=== PATIENT | female | born 1960 | race African-American/Black ===

== ENCOUNTER → 2017-06-27 | Outpatient (CLI) | payer OTHER ==
--- NOTE | 2017-06-27 16:27 | RADIOLOGY REPORT (SQ) ---
EXAM DESCRIPTION: KUB/ABDOMEN (SINGLE VIEW) COMPLETED DATE/TIME: 06/27/2017 12:58 pm REASON FOR STUDY: CONSTIPATION (K59.01), BLOATING (R14.0) K59.01 SLOW TRANSIT CONSTIPATION R14.0 A BDOMINAL DISTENSION (GASEOUS) COMPARISON: None. NUMBER OF VIEWS: One view. TECHNIQUE: Supine radiographic image of the abdomen acquired. LIMITATIONS: None. FINDINGS: BOWEL GAS PATTERN: Large amount of fecal material in the proximal colon. CALCIFICATIONS: No suspicious calcifications. Multiple phleboliths in the pelvis. SOFT TISSUES: No gross mass or suggestion of organomegaly. HARDWARE: None in the abdomen. BONES: No acute fracture. No worrisome bone lesions. OTHER: No other significant finding. IMPRESSION: Large amount of fecal material in the proximal colon otherwise negative abdomen. TECHNICAL DOCUMENTATION: JOB ID: [id number] [employer]- All Rights Reserved
== END ==
LOC: RAD 12:26
PROVIDERS: ATTEND Internal Medicine Gastroenterology
DX: K59.01 Slow transit constipation (principal); R14.0 Abdominal distension (gaseous)
CPT/HCPCS: 74018

== ENCOUNTER → 2017-08-30 | Day surgery (SDC) | payer OTHER ==
[~2017-08-30] MED LIST: LIDOCAINE 2% JELLY 5 ML TUBE ONE
== END ==
LOC: END 13:29
PROVIDERS: ATTEND Internal Medicine Gastroenterology
PROC: 4A0B7BZ Measurement of Gastrointestinal Pressure, Via Natural or Artificial Opening (ICD-10-PCS; principal; 2017-08-30)
PROC: 4A0B78Z Measurement of Gastrointestinal Motility, Via Natural or Artificial Opening (ICD-10-PCS; 2017-08-30)
DX: K21.9 Gastro-esophageal reflux disease without esophagitis (principal); Z79.899 Other long term (current) drug therapy
CPT/HCPCS: 91010; 91035

== ENCOUNTER 2018-08-08 11:16 | Observation (INO) | payer OTHER ==
[2018-08-08] MEDS ORDERED: ASPIRIN 81 MG TABLET, CHEWABLE PO ONE (11:41)
[2018-08-08 12:06] LABS: ABSOLUTE EOSINOPHILS # (AUTO) 0.1 10^3/uL (0.0-0.6); ABSOLUTE LYMPHOCYTES (AUTO) 2.5 10^3/uL (0.5-4.7); ABSOLUTE MONOCYTES (AUTO) 0.3 10^3/uL (0.1-1.4); ABSOLUTE NEUT (AUTO) 2.2 10^3/uL (1.7-8.2); BASOPHILS % (AUTO) 0.9 % (0-2); EOSINOPHILS % (AUTO) 2.6 % (0-6); HEMATOCRIT 38.4 % (36.0-47.0); HEMOGLOBIN 12.5 g/dL (12.0-15.5); LYMPHOCYTES % (AUTO) 47.6 % (13-45); MEAN CORPUSCULAR HEMOGLOBIN 24.1 pg (27.0-33.4); MEAN CORPUSCULAR HGB CONC 32.5 g/dL (32.0-36.0); MEAN CORPUSCULAR VOLUME 74 fl (80-97); MONOCYTES % (AUTO) 6.4 % (3-13); PLATELET COUNT 340 10^3/uL (150-450); RED BLOOD COUNT 5.18 10^6/uL (3.72-5.28); RED CELL DISTRIBUTION WIDTH 15.6 % (11.5-14.0); SEGMENTED NEUTROPHILS % (AUTO) 42.5 % (42-78); TOTAL CELLS COUNTED % (AUTO) 100 %; WHITE BLOOD COUNT 5.2 10^3/uL (4.0-10.5)
[2018-08-08 12:07] LABS: ALANINE AMINOTRANSFERASE 22 U/L (9-52); ALKALINE PHOSPHATASE 52 U/L (38-126); ANION GAP 13 (5-19); ASPARTATE AMINO TRANSFERASE 20 U/L (14-36); BILIRUBIN,DIRECT 0.3 mg/dL (0.0-0.4); BILIRUBIN,TOTAL 0.3 mg/dL (0.2-1.3); BLOOD UREA NITROGEN 11 mg/dL (7-20); CALCIUM 10.3 mg/dL (8.4-10.2); CARBON DIOXIDE 23 mmol/L (22-30); CHLORIDE 106 mmol/L (98-107); CREATINE KINASE 88 U/L (30-135); GLUCOSE 99 mg/dL (75-110); POTASSIUM 3.8 mmol/L (3.6-5.0); SODIUM 141.7 mmol/L (137-145)
--- NOTE | 2018-08-08 12:08 | RADIOLOGY REPORT (SQ) ---
EXAM DESCRIPTION: CHEST SINGLE VIEW COMPLETED DATE/TIME: 08/08/2018 11:58 am REASON FOR STUDY: chest pain COMPARISON: 12/26/2012 EXAM PARAMETERS: NUMBER OF VIEWS: One view. TECHNIQUE: Single frontal radiographic view of the chest acquired. RADIATION DOSE: NA LIMITATIONS: None. FINDINGS: LUNGS AND PLEURA: No opacities, masses or pneumothorax. No pleural effusion. MEDIASTINUM AND HILAR STRUCTURES: No masses. Contour normal. HEART AND VASCULAR STRUCTURES: Heart normal in size. Normal vasculature. BONES: No acute findings. HARDWARE: None in the chest. OTHER: No other significant finding. IMPRESSION: 1. No significant interval changes since the prior examination dated 12/26/2012. No acu te findings. TECHNICAL DOCUMENTATION: JOB ID: [id number] [employer]- All Rights Reserved Reading location - IP/workstation name: [email or web address]
[2018-08-08 12:21] LABS: CREATINE KINASE MB < 0.22 ng/mL (<4.55); TROPONIN I < 0.012 ng/mL
--- NOTE | 2018-08-08 13:17 | ER Document Report ---
ED General - General Chief Complaint: Chest Pain Stated Complaint: BLOOD PRESSURE ISSUES Time Seen by Provider: 08/08/18 13:16 TRAVEL OUTSIDE OF THE [place] IN LAST 30 DAYS: No - HPI Notes: 58-year-old female presents the ED with complaints of having headaches, with nausea and blurred vision while she is experiencing fleeting chest pain, states that the symptoms come and go over the course of the last 4 days, patient has a history of hypertension and is taking norvasc 40mg and 80 mg of carvedilol daily. Patient states has been taking her blood pressures at home and they have been roughly around 170-180/90. States she experiences midsternal chest pain that radiates to her left chest wall she is brushing her teeth and then it goes away. Denies any radiation to jaw or down her arm. Patient does not take a baby aspirin daily has not been evaluated by a elevator conductor in well over 5 years, has not had a stress test since 2013. Denies fevers, chills,palpitations, shortness of breath, dyspnea, nausea, vomiting, diarrhea, abdominal pain, hematuria, speech changes, LH, dizziness, syncope, wheezing, ST, URI, neck pain, weakness, bowel or bladder dysfunction, saddle anesthesia, numbness or tingling in bilateral upper or lower extremities equally, muscle paralysis, weakness in bilateral upper or lower extremities equally or rash. - Related Data Allergies/Adverse Reactions: No Known Allergies Allergy (Verified 08/08/18 11:17) Past Medical History - General Information source: Patient - Social History Smoking Status: Never Smoker Frequency of alcohol use: None Drug Abuse: None Family History: Reviewed & Not Pertinent, DM - MOTHER, Malignancy - FATHER LUNG CANCER Patient has suicidal ideation: No Patient has homicidal ideation: No - Past Medical History Cardiac Medical History: Reports: Hx Hypertension Denies: Hx Hypercholesterolemia Neurological Medical History: Reports: Hx Migraine - FREQUENT Renal/ Medical History: Denies: Hx Peritoneal Dialysis GI Medical History: Reports: Hx Gastroesophageal Reflux Disease Psychiatric Medical History: Reports: Hx Anxiety Past Surgical History: Reports: Hx Abdominal Surgery - hernia repair, Hx Miguel an Section, Hx Hysterectomy - Immunizations Hx Diphtheria, Pertussis, Tetanus Vaccination: Yes Review of Systems - Review of Systems Constitutional: No symptoms reported EENT: No symptoms reported Cardiovascular: See HPI Respiratory: No symptoms reported Gastrointestinal: No symptoms reported Genitourinary: No symptoms reported Female Genitourinary: No symptoms reported Musculoskeletal: No symptoms reported Skin: No symptoms reported Hematologic/Lymphatic: No symptoms reported Neurological/Psychological: No symptoms reported Physical Exam - Vital signs Vitals: Resp 14 08/08/18 11:34 - Notes Notes: PHYSICAL EXAMINATION: GENERAL: Well-appearing, well-nourished and in no acute distress. HEAD: Atraumatic, normocephalic. EYES: Pupils equal round and reactive to light, extraocular movements intact, conjunctiva are normal. ENT: Nares patent, oropharynx clear without exudates. Moist mucous membranes. NECK: Normal range of motion, supple without lymphadenopathy LUNGS: Breath sounds clear to auscultation bilaterally and equal. No wheezes rales or rhonchi. HEART: Regular rate and rhythm without murmurs ABDOMEN: Soft, nontender, nondistended abdomen. No guarding, no rebound. No masses appreciated. Female : deferred Musculoskeletal: Normal range of motion, no pitting or edema. No cyanosis. NEUROLOGICAL: Cranial nerves grossly intact. Normal speech, normal gait. Normal sensory, motor exams PSYCH: Normal mood, normal affect. SKIN: Warm, Dry, normal turgor, no rashes or lesions noted. 22-like and then on the other half of a flight Course - Re-evaluation Re-evalutation: 08/08/18 13:58 58-year-old female with a history of hypertension afebrile, slightly hypertensive in the 150s over 90s in no distress presents for evaluation of chest pain that is fleeting, has been occurring over the course of the last 4 days which she is concurrently has had occipital headaches, some blurred vision, nausea that has occurred when she is having the chest pain. Patient has been taking her blood pressure medications as directed she did take it this morning. CBC negative for leukocytosis or anemia, CMP negative for hepatic or renal dysfunction, no electrolyte disturbances. Chest x-ray negative for any acute pulmonary issues, EKG negative for acute STEMI no ST segment changes. First set of troponin unremarkable. Patient given 325 baby aspirin for what sounds like patient to have unstable angina, does require inpatient stress test and echocardiogram since it has been well over 5 years since patient has been evaluated by the elevator conductor. Patient's heart score is moderate, 4 points which has a 12-6.8 for risk of adverse cardiac event. patient states that she did see a elevator conductor however she was switched from seeing primary care but [place]. [place] I feel this patient is reasonable to admit for observation for chest pain for further evaluation of her chest pain and hypertension. Hospitalist service, Dr. Dom Clement, hospitalist, consulted at 1448 will admit patient to medical service for cardiac observation for unstable angina. Patient has been verbalized understanding of this plan of care and agree with plan of care. 08/08/18 16:55 - Vital Signs Vital signs: Temp Pulse Resp BP Pulse Ox 98.8 F 22 H 132/98 H 100 08/08/18 16:25 08/08/18 15:01 08/08/18 15:01 08/08/18 15:01 - Laboratory Result Diagrams: 08/08/18 11:30 08/08/18 11:30 Laboratory results interpreted by me: 08/08/18 08/08/18 11:30 11:30 MCV 74 L MCH 24.1 L RDW 15.6 H Lymphocytes % 47.6 H Calcium 10.3 H Total Protein 9.0 H Discharge - Discharge Clinical Impression: Chest pain Qualifiers: Ischemic chest pain type: unstable angina pectoris Hypertension Qualifiers: Hypertension type: essential hypertension Qualified Code(s): I10 - Essential (primary) hypertension Condition: Stable Disposition: ADMITTED OBSERVATION Admitting Provider: Hospitalist - Dr. Dom Clement Unit Admitted: Telemetry
--- NOTE | 2018-08-08 13:32 | EKG REPORT ---
SEVERITY:- BORDERLINE ECG - SINUS RHYTHM LVH BY VOLTAGE : Confirmed by: Gordon Pappas MD 08-Aug-2018 13:32:14
--- NOTE | 2018-08-08 14:12 | ER Document Report ---
Doctor's Note Notes: 08/08/18 14:11 I personally and independently obtained patient history and examined the patient and have reviewed the APC's note, reviewed, discussed and agree with their assessment and plan. HISTORY OF PRESENT ILLNESS: Patient is a 58-year-old female that presents to the emergency department for chief complaint of chest pain. Pain is been intermittent. ROS: Constitutional: Negative for fever. Cardiovascular: chest pain. Respiratory: Negative for shortness of breath. Gastrointestinal: Negative for vomiting or abdominal pain Musculoskeletal: Negative for arm, leg or back pain Skin: Negative for rash. Neurological: Negative for weakness or numbness. Unless otherwise stated in this report the patient's positive and negative responses for review of systems for constitutional, eyes, ENT, cardiovascular, respiratory, gastrointestinal, neurological, genitourinary, musculoskeletal, and integumentary systems and related systems to the presenting problem are either as stated in the HPI or were not pertinent or were negative for the symptoms and/or complaints related to the presenting medical problem. PHYSICAL EXAMINATION: Vital signs reviewed, nursing noted reviewed. GENERAL: Well-appearing, well-nourished and in no acute distress. HEAD: Atraumatic, normocephalic. EYES: Eyes appear normal, conjunctiva are normal. ENT: nares patent, oropharynx clear without exudates. Moist mucous membranes. NECK: Normal range of motion, supple without lymphadenopathy LUNGS: Breath sounds clear to auscultation bilaterally and equal. No wheezes rales or rhonchi. HEART: Regular rate and rhythm without murmurs ABDOMEN: Soft, nontender, normoactive bowel sounds. No rebound, guarding, or rigidity. No masses appreciated. EXTREMITIES: Nontender, good range of motion, no pitting or edema. NEUROLOGICAL: No focal neurological deficits. Moves all extremities spontaneously Motor and sensory grossly intact on exam. PSYCH: Normal mood, normal affect. SKIN: Warm, Dry, normal turgor, no rashes or lesions noted on exposed MEDICAL DECISION MAKING: Patient currently resting comfortably and not having active chest pain. She will be admitted for further cardiac evaluation Please review detail APC documentation. *Note is created using voice recognition software and may contain spelling, syntax or grammatical errors.
[2018-08-08] MEDS ORDERED: NITROGLYCERIN 0.4 MG/TAB 25 TAB/BOTTLE SL PRN (14:27)
--- NOTE | 2018-08-08 14:54 | PDOC H&P ---
History of Present Illness Admission Date/PCP: DARY LAMB MD History of Present Illness: FAITH UNDERWOOD is a 58 year old female with a history of hypertension who is been having left-sided chest pain, nonradiating, off and on for the past 4 days. She says it gets worse with exertion and her anxiety goes up and her blood pressure goes up and when she rests and calm down it goes away. It never lasts for more than a minute or so at a time. She says she has had several episodes of it. She has no prior history of cardiac disease. No family history. She is a non-smoker and is not diabetic. She said she had a stress test about 5 years ago and it was normal. Her blood pressure initially was elevated but she was not having chest pain at the time. It has since trended down on its own. Initial troponin was negative. She is been admitted for observation. Past Medical History Cardiac Medical History: Reports: Hypertension Denies: Hyperlipidema Neurological Medical History: Reports: Migraine - FREQUENT GI Medical History: Reports: Gastroesophageal Reflux Disease Past Surgical History Past Surgical History: Reports: Section, Hysterectomy Social History Smoking Status: Never Smoker Family History Family History: Reviewed & Not Pertinent, DM - MOTHER, Malignancy - FATHER LUNG CANCER Parental Family History Reviewed: Yes Children Family History Reviewed: Yes Sibling(s) Family History Reviewed.: Yes Medication/Allergy Allergies/Adverse Reactions: No Known Allergies Allergy (Verified 08/08/18 11:17) Review of Systems All systems: reviewed and no additional remarkable complaints except as stated - All systems were reviewed and were negative except as noted in the HPI Physical Exam Vital Signs: Temp Pulse Resp BP Pulse Ox 14 152/86 H 99 08/08/18 11:34 08/08/18 12:01 08/08/18 12:01 General appearance: PRESENT: no acute distress, cooperative Head exam: PRESENT: atraumatic, normocephalic Eye exam: PRESENT: EOMI, PERRLA. ABSENT: conjunctival injection, nystagmus, scleral icterus Ear exam: PRESENT: normal external ear exam Mouth exam: PRESENT: moist, neck supple Throat exam: ABSENT: post pharyngeal erythema Neck exam: PRESENT: full ROM. ABSENT: carotid bruit, JVD, lymphadenopathy, meningismus, tenderness, thyromegaly Respiratory exam: PRESENT: clear to auscultation terence, symmetrical, unlabored. ABSENT: accessory muscle use, chest wall tenderness, crackles, prolonged expiratory phas, rhonchi, tachypnea, wheezes Cardiovascular exam: PRESENT: RRR, +S1, +S2 Pulses: ABSENT: normal carotid pulses Vascular exam: ABSENT: normal capillary refill GI/Abdominal exam: PRESENT: normal bowel sounds, soft. ABSENT: distended, guarding, rebound, tenderness Extremities exam: ABSENT: clubbing, pedal edema Musculoskeletal exam: PRESENT: normal inspection. ABSENT: deformity Neurological exam: PRESENT: alert, awake, oriented to person, oriented to place, oriented to time, oriented to situation, CN II-XII grossly intact. ABSENT: motor sensory deficit Psychiatric exam: PRESENT: appropriate affect, normal mood Skin exam: PRESENT: dry, warm Results Laboratory Results: 08/08/18 11:30 08/08/18 11:30 08/08/18 08/08/18 11:30 11:30 WBC 5.2 RBC 5.18 Hgb 12.5 Hct 38.4 MCV 74 L MCH 24.1 L MCHC 32.5 RDW 15.6 H Plt Count 340 Seg Neutrophils % 42.5 Lymphocytes % 47.6 H Monocytes % 6.4 Eosinophils % 2.6 Basophils % 0.9 Absolute Neutrophils 2.2 Absolute Lymphocytes 2.5 Absolute Monocytes 0.3 Absolute Eosinophils 0.1 Absolute Basophils 0.0 Sodium 141.7 Potassium 3.8 Chloride 106 Carbon Dioxide 23 Anion Gap 13 BUN 11 Creatinine 0.89 Est GFR ( Amer) > 60 Est GFR (Non-Af Amer) > 60 Glucose 99 Calcium 10.3 H Total Bilirubin 0.3 AST 20 ALT 22 Alkaline Phosphatase 52 Total Protein 9.0 H Albumin 5.0 08/08/18 08/08/18 11:30 11:30 Creatine Kinase 88 CK-MB (CK-2) < 0.22 Troponin I < 0.012 Impressions: Chest X-Ray 08/08/18 11:41 IMPRESSION: 1. No significant interval changes since the prior examination dated 12/26/2012. No acute findings. Assessment and Plan - Diagnosis (1) Chest pain Qualifiers: Ischemic chest pain type: unstable angina pectoris Is this a current diagnosis for this admission?: Yes Plan: We will trend her troponins and plan for a stress test tomorrow. We will hold her beta-keerthi until after the stress test. Will start on aspirin and a st atin. We will monitor on telemetry. (2) Hypertension Qualifiers: Hypertension type: essential hypertension Qualified Code(s): I10 - Essential (primary) hypertension Is this a current diagnosis for this admission?: Yes Plan: She says the only medication she is on for blood pressure are amlodipine, carvedilol, and propranolol. She is not sure why she is on 2 beta blockers. Both of them are being held for now. After her stress test will hold the propranolol and resume the carvedilol. - Time Time Spent with patient: 35 or more minutes
[2018-08-08] MEDS ORDERED: ATORVASTATIN CALCIUM 80 MG TABLET PO SCH (22:00)
[2018-08-08] MEDS ORDERED: DIPHENHYDRAMINE HCL 50 MG CAPSULE PO ONE (23:00)
[2018-08-08] MEDS ORDERED: MELATONIN 3 MG TABLET PO ONE (23:15)
[2018-08-08] MEDS: ACETAMINOPHEN 325 MG TABLET PO PRN (23:31)
[2018-08-09] MEDS: ACETAMINOPHEN 325 MG TABLET PO PRN (08:14)
[2018-08-09] MEDS ORDERED: ASPIRIN 81 MG TABLET, ENT COATED PO SCH (10:00)
[2018-08-09] MEDS ORDERED: AMLODIPINE BESYLATE 10 MG TABLET PO SCH (10:00)
[2018-08-09 14:26] VITALS: BP 148/87
--- NOTE | 2018-08-09 19:43 | PDOC DISCHARGE SUMMARY ---
General - Admit/Disc Date/PCP Admission Date/Primary Care Provider: 08/08/18 14:52 Discharge Date: 08/09/18 - Discharge Diagnosis (1) Chest pain Is this a current diagnosis for this admission?: Yes Summary: The patient had negative serial enzymes. She feels better this morning. She denies chest pain. We discussed multiple etiologies. She did recently have hiatal hernia surgery and there could be a gastroesophageal component. She does report that she will get tachycardic and then becomes anxious which worsens the tachycardia. She was on carvedilol and propranolol. We reviewed the fact that I did not think this was related to any acute coronary syndrome however I did s uggest that she see cardiology. They can restructure her medications. She will certainly need a stress test. She did report that she had an echo years ago and notes that there were some abnormalities but she was told that it was not significant. I referred her to Dr. Martinez who can then assess situation and order the opiate follow-up diagnostics. He can then help manage her medication regimen. (2) Hypertension Is this a current diagnosis for this admission?: Yes Summary: The patient is on long-acting carvedilol 80 mg. I did not change this as it is the maximum dose. Her Norvasc was increased to 10 mg daily. I explained that we would keep that one change for now and cardiology can suggest other changes. (3) Mixed migraine and muscle contraction headache Is this a current diagnosis for this admission?: Yes Summary: She does get headaches. She tries to avoid Fioricet. From her description it sounds like a mixed migraine as she specifically describes tension in the back of her neck. This could be contributing to some of her anxiety. We will try to achieve better blood pressure control and possibly consider medication for anxiety. (4) GERD (gastroesophageal reflux disease) Is this a current diagnosis for this admission?: Yes Summary: She recently had surgery for a hiatal hernia. She reported a sensation of food getting stuck however there was no evidence of stricture. She should continue proton pump inhibitor therapy. - Additional Information Resuscitation Status: Full Code Discharge Diet: Cardiac Discharge Activity: Activity As Tolerated, Balance Activity w/Rest Prescriptions: Amlodipine Besylate [Norvasc 10 mg Tablet] 10 mg PO DAILY 30 Days #30 tablet Atorvastatin Calcium [Lipitor 80 mg Tablet] 80 mg PO QHS 30 Days #30 tablet Nitroglycerin [Nitrostat 0.4 mg (1/150 Gr) Tabs 25/Bottle] 1 tab SL Q5MP PRN 30 Days #1 bottle PRN Reason: Home Medications: Butalb/Acetaminophen/Caffeine [Fioricet (50-325-40 mg) Tablet] 1 tab PO Q6HP PRN 08/08/18 Carvedilol Phosphate [Coreg CR 80 mg Ext. Release Capsule] 80 mg PO DAILY 08/08/18 Cetirizine HCl [Zyrtec 10 mg Tablet] 10 mg PO DAILY 08/08/18 Lidocaine [Lidoderm 5% (700 mg) Transdermal Patch] 1 patch TOP DAILYP PRN 08/08/18 Melatonin [Melatonin 3 mg Tablet] 6 mg PO QHS 08/08/18 Omeprazole 40 mg PO DAILY 08/08/18 Sertraline HCl [Zoloft] 200 mg PO DAILY 08/08/18 Amlodipine Besylate [Norvasc 10 mg Tablet] 10 mg PO DAILY 30 Days #30 tablet 08/09/18 Aspirin [Ecotrin 81 mg EC Tablet] 81 mg PO DAILY tabec 08/09/18 Atorvastatin Calcium [Lipitor 80 mg Tablet] 80 mg PO QHS 30 Days #30 tablet 08/09/18 Melatonin [Melatonin 3 mg Tablet] 6 mg PO QHS tablet 08/09/18 Nitroglycerin [Nitrostat 0.4 mg (1/150 Gr) Tabs 25/Bottle] 1 tab SL Q5MP PRN 30 Days #1 bottle 08/09/18 History of Present Illness Patient complains of: Chest pain History of Present Illness: FAITH UNDERWOOD is a 58 year old female who was experiencing episodes of chest discomfort with increased anxiety and palpitations. As noted above they tend to be a cycle where she will get some discomfort (possibly from GI or other) which will increase anxiety which will then raise her blood pressure which will then increase her discomfort. Because of the description of the discomfort the patient was referred for admission to rule out an acute cardiac event. Hospital Course Hospital Course: The patient had a benign hospital course. Troponin studies were negative. The patient was going to have a stress test but inadvertently was given a tray of food. We are discharging the patient. I had a long talk with her about the need to improve the medication regimen. She was on carvedilol and propranolol. I suggested that she see cardiology. They can evaluate her and order the appropriate follow-up testing and make modifications to her medication regimen. Because of the potential for cardiac etiology she was started on atorvastatin. She can hold off on filling the prescription until she sees cardiology. I did suggest that she start an enteric-coated aspirin 81 mg daily. Physical Exam Vital Signs: Temp Pulse Resp BP Pulse Ox 99.1 F 78 16 146/83 H 100 08/09/18 11:14 08/09/18 11:14 08/09/18 11:14 08/09/18 11:14 08/09/18 11:14 Intake & Output 08/08/18 08/09/18 08/10/18 06:59 06:59 06:59 Intake Total 300 Balance 300 Weight 86.183 kg General appearance: PRESENT: no acute distress, cooperative, well-developed Head exam: PRESENT: atraumatic, normocephalic Eye exam: PRESENT: conjunctiva pink. ABSENT: scleral icterus Ear exam: PRESENT: normal external ear exam Mouth exam: PRESENT: moist, tongue midline Neck exam: ABSENT: carotid bruit, JVD, lymphadenopathy Respiratory exam: PRESENT: clear to auscultation terence, symmetrical, unlabored. ABSENT: accessory muscle use, rales, rhonchi, tachypnea, wheezes Cardiovascular exam: PRESENT: RRR, +S1, +S2 Vascular exam: ABSENT: pallor GI/Abdominal exam: PRESENT: normal bowel sounds, soft. ABSENT: distended, tenderness Rectal exam: PRESENT: deferred Gentrourinary exam: ABSENT: indwelling catheter Extremities exam: ABSENT: pedal edema Neurological exam: PRESENT: alert, awake, oriented to person, oriented to place, oriented to time, oriented to situation, CN II-XII grossly intact Psychiatric exam: PRESENT: appropriate affect, normal mood. ABSENT: agitated, anxious Focused psych exam: ABSENT: delusional, restlessness Results Laboratory Results: 08/08/18 11:30 08/08/18 11:30 08/08/18 08/08/18 08/08/18 11:30 11:30 15:47 Creatine Kinase 88 CK-MB (CK-2) < 0.22 Troponin I < 0.012 < 0.012 08/08/18 08/09/18 08/09/18 21:34 03:00 09:44 Creatine Kinase CK-MB (CK-2) Troponin I < 0.012 0.022 < 0.012 Impressions: Chest X-Ray 08/08/18 11:41 IMPRESSION: 1. No significant interval changes since the prior examination dated 12/26/2012. No acute findings. Qualifiers - * PATIENT BEING DISCHARGED WITH ANY OF THE FOLLOWING DIAGNOSIS: No Plan Time Spent: Greater than 30 Minutes
[2018-08-09] MEDS ORDERED: MELATONIN 3 MG TABLET PO SCH (22:00)
== END 2018-08-09 15:03 | disposition home or self-care (01) ==
LOC: ER 11:16 → EH 14:52 → 4N 20:05
PROVIDERS: ADMIT Family Medicine; ATTEND Family Medicine
DX: R07.89 Other chest pain (principal); I10 Essential (primary) hypertension; G43.809 Other migraine, not intractable, without status migrainosus; R09.89 Other specified symptoms and signs involving the circulatory and respiratory systems; K21.9 Gastro-esophageal reflux disease without esophagitis; F41.9 Anxiety disorder, unspecified; R00.2 Palpitations; Z98.890 Other specified postprocedural states; Z79.899 Other long term (current) drug therapy; Z79.82 Long term (current) use of aspirin; Z80.1 Family history of malignant neoplasm of trachea, bronchus and lung; Z83.3 Family history of diabetes mellitus
CPT/HCPCS: 93005; 99285; 36415 ×2; 82553; 82550; 85025; 80053; 84484 ×2; 71045; 93010; J3490 ×2; G0378